=== PATIENT | female | born 1965 | race Caucasian/White ===

== ENCOUNTER 2019-02-17 23:57 | Emergency (ER) | payer OTHER ==
[~2019-02-17] VITALS: Ht 162.6 cm; Wt 72.6 kg
[2019-02-18 00:13] VITALS: Ht 162.6 cm; Wt 72.6 kg
[2019-02-18 02:07] VITALS: BP 124/73
== END 2019-02-18 02:07 | disposition home or self-care (01) ==
LOC: ED 23:57
DX: S00.03XA Contusion of scalp, initial encounter (principal); Y04.8XXA Assault by other bodily force, initial encounter; Y93.89 Activity, other specified; Y92.89 Other specified places as the place of occurrence of the external cause; Y99.8 Other external cause status

== ENCOUNTER 2019-04-20 23:23 | Emergency (ER) | payer OTHER ==
[~2019-04-20] VITALS: Ht 162.6 cm; Wt 65.8 kg
[2019-04-20 23:31] VITALS: BP 149/86; Ht 162.6 cm; Wt 65.8 kg
== END 2019-04-21 00:55 | disposition other institution (70) ==
LOC: ED 23:23
DX: S63.502A Unspecified sprain of left wrist, initial encounter (principal); F41.9 Anxiety disorder, unspecified; Z88.2 Allergy status to sulfonamides; Z88.0 Allergy status to penicillin; W01.0XXA Fall on same level from slipping, tripping and stumbling without subsequent striking against object, initial encounter; Y93.89 Activity, other specified; Y92.89 Other specified places as the place of occurrence of the external cause; Y99.8 Other external cause status

== ENCOUNTER 2019-04-20 23:23 | Emergency (ER) | payer OTHER | END 2019-04-21 00:55 | disposition other institution (70) | LOC: ED 23:23 | DX: Z02.89 Encounter for other administrative examinations (principal) ==